=== PATIENT | female | born 1970 | race Caucasian/White ===

== ENCOUNTER 2023-09-05 07:59 | Day surgery (SDC) | payer MEDICAID ==
[~2023-09-05] VITALS: Ht 160 cm; Wt 78.1 kg
[2023-09-05 11:33] VITALS: O2SAT 98
[2023-09-05] MEDS ORDERED: ACETAMINOPHEN I.V. 1000 MG 100 ML IV ONE (12:09)
[2023-09-05] MEDS ORDERED: HYDROmorphone 1 MG/ML INJ. CARTRIDGE IVP PRN ×2 (12:15)
[2023-09-05] MEDS ORDERED: METOCLOPRAMIDE HCL 10 MG/2 ML VIAL IVP PRN (12:15)
[2023-09-05] MEDS ORDERED: MIDAZOLAM HCL 2 MG/2 ML VIAL (VERSED) IVP PRN (12:15)
[2023-09-05] MEDS ORDERED: MEPERIDINE HCL/PF 25 MG/ML DISP.SYRIN IVP PRN (12:15)
[2023-09-05] MEDS ORDERED: hydrALAZINE HCL 20 MG/ML VIAL IVP PRN (12:15)
[2023-09-05] MEDS ORDERED: LR 1,000 ML IV SCH (12:15)
[2023-09-05] MEDS ORDERED: PROPOFOL 200MG/ 20ML VIAL (DIPRIVAN) IV ONE (14:10)
[2023-09-05] MEDS ORDERED: SEVOFLURANE 15 MIN GAS INH ONE (14:10)
[2023-09-05] MEDS ORDERED: SUGAMMADEX SODIUM 200 MG/2 ML VIAL IV ONE (14:10)
[2023-09-05] MEDS ORDERED: DEXAMETHASONE SOD PHOSPHATE 4 MG/ML VIAL ONE (14:10)
[2023-09-05] MEDS ORDERED: NS IRRIG SOLN 1000 ML IR ONE (14:10)
[2023-09-05] MEDS ORDERED: LIDOCAINE 2%, 20 ML MDV ONE (14:10)
[2023-09-05] MEDS ORDERED: fentaNYL CITRATE/PF 100 MCG/2 ML AMP ONE (14:10)
[2023-09-05] MEDS ORDERED: MIDAZOLAM HCL 5 MG/ML VIAL (VERSED) IV ONE (14:10)
[2023-09-05] MEDS ORDERED: EPINEPHrine HCL 1 MG/ML VIAL ONE (14:10)
[2023-09-05] MEDS ORDERED: LIDOCAINE/EPI 1% 1:100000 20 ML VIAL ONE (14:10)
[2023-09-05] MEDS ORDERED: ONDANSETRON HCL 4 MG/2 ML VIAL ONE (14:10)
[2023-09-05] MEDS ORDERED: LR 1,000 ML IV.SOLN IV ONE (14:10)
[2023-09-05] MEDS ORDERED: MUPIROCIN 2% TOPICAL OINTMENT 22 GM ONE (14:10)
[2023-09-05] MEDS ORDERED: WATER FOR IRRIGATION,STERILE 1,000 ML IRRIG.SOLN IR ONE (14:10)
[2023-09-05] MEDS ORDERED: ROCURONIUM BROMIDE 10 MG/ML (ZEMURON) ONE (14:10)
[2023-09-05 16:53] VITALS: BP_SYST 128; PULSE 75; RESP 16
== END 2023-09-05 16:44 | disposition home or self-care (01) ==
LOC: SDS 07:59 → SMU 08:01 → SDS 16:44
PROVIDERS: ATTEND Otolaryngology
DX: D38.5 Neoplasm of uncertain behavior of other respiratory organs (principal); J34.2 Deviated nasal septum; J34.89 Other specified disorders of nose and nasal sinuses; J33.9 Nasal polyp, unspecified; R09.81 Nasal congestion; H93.13 Tinnitus, bilateral; I10 Essential (primary) hypertension; E78.5 Hyperlipidemia, unspecified; J45.909 Unspecified asthma, uncomplicated; Z90.710 Acquired absence of both cervix and uterus; Z98.891 History of uterine scar from previous surgery; Z79.899 Other long term (current) drug therapy
CPT/HCPCS: 31298; 30520; 30140; 31256; 31255; 88304; 88305; 88311; J3490; J1100; J0171; J2250; J2405; J2704; J3010; J7120; J0131; C1726; J2001